=== PATIENT | female | born 2000 | race Caucasian/White ===

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

== ENCOUNTER 2021-06-03 10:55 | Emergency (ER) | payer BC, OTHER ==
[2021-06-03 11:43] VITALS: BP 114/72; PULSE 77; TEMP 97.9; BMI 26.6
[2021-06-03 12:35] LABS: EPI CELLS >36 /uL (0-25.1); HYALINE CASTS 0 /uL (0-3.1); URINE APPEARANCE CLOUDY; URINE BACTERIA 2844 /uL (0-1359); URINE BILIRUBIN NEGATIVE (NEGATIVE); URINE COLOR YELLOW; URINE GLUCOSE (UA) NEGATIVE (NEGATIVE); URINE KETONE NEGATIVE (NEGATIVE); URINE LEUK ESTERASE 1+ (NEGATIVE); URINE NITRITE NEGATIVE (NEGATIVE); URINE PROTEIN NEGATIVE (NEGATIVE); URINE RBC 3 /uL (0-23.9); URINE UROBILINOGEN 0.2 mg/dL (0.2-1.0); URINE WBC 117 /uL (0-25.8)
[2021-06-03 12:36] LABS: HCG,QUALITATIVE URINE Negative
== END 2021-06-03 13:41 | disposition home or self-care (01) ==
LOC: JERFT 10:55
DX: R30.0 Dysuria (principal); Z32.02 Encounter for pregnancy test, result negative
CPT/HCPCS: 36415; 81003; 84703; 87077; 87086; 87491; 87591; 99283-25